=== PATIENT | male | born 1980 | race Caucasian/White ===

== ENCOUNTER 2016-11-17 13:30 | Inpatient (IN) | payer MEDICAID ==
[~2016-11-17 13:30] MED LIST: AVITENE POWDER 1 GM JAR TP ONE; BACITRACIN 50,000 UNITS/10 ML SYR IRR ONE; BACITRACIN ZINC 14.2 GM OINTTUBE TP ONE; LIDO/EPI 1% **for epidural** 30 ML SDV ONE; MANNITOL 20% 100 GM/500 ML BAG IV ONE; SURGIFLO MATRIX KIT WITH THROMBIN TP ONE; THROMBIN (BOVINE) 5,000 UNIT VIAL TP ONE; ceFAZolin 2 GM/DEXTROSE 100 ML IV ONE
[2016-11-17] MEDS ORDERED: LR 1,000 ML IV ONE (15:21)
[2016-11-17 15:42] LABS: % IMMATURE GRANULYOCYTES 0.6 % (0.0-1.1); ABSOLUTE IMMATURE GRANULOCYTES 0.06 10^3/uL (0.00-0.10); ADD DIFF? NO; ADD MORPH? NO; ADD SCAN? NO; ATYPICAL LYMPHOCYTE FLAG 10 (0-99); FRAGMENT RBC FLAG 0 (0-99); HEMATOCRIT 49.9 % (40.0-51.0); HEMOGLOBIN 17.8 g/dL (13.7-17.5); LEFT SHIFT FLG 0 (0-99); LIPEMIA HEMOLYSIS FLAG 90 (0-99); MEAN CELL HEMOGLOBIN 33.2 pg (27.9-34.1); MEAN CELL HEMOGLOBIN CONCENTR. 35.7 g/dL (32.4-36.7); MEAN CELL VOLUME 93.1 fL (81.5-99.8); MEAN PLATELET VOLUME 9.6 fL (8.7-11.7); PLATELET CLUMPS FLAG 10 (0-99); PLATELET COUNT 254 10^3/uL (150-400); RED BLOOD CELL COUNT 5.36 10^6/uL (4.40-6.38)
[2016-11-17] MEDS ORDERED: GENTAMICIN SULFATE 80 MG/2 ML VIAL ONE (15:55)
[2016-11-17] MEDS ORDERED: ceFAZolin 2 GM/DEXTROSE 100 ML IV ONE (16:00)
[2016-11-17] MEDS ORDERED: BACITRACIN 50,000 UNITS/10 ML SYR IRR ONE (16:03)
[2016-11-17] MEDS ORDERED: MIDAZOLAM 2 MG/2 ML VIAL IVP ONE (16:08)
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
--- NOTE | 2016-11-17 16:23 | PDHPUP ---
History & Physical Update H&P update statement: This history and physical update is based on an assessment of the patient which was completed after admission or registration (within 24 hours), but prior to the surgery/procedure. H&P update: H&P reviewed & patient examined, no change in patient's condition since H&P completed
[2016-11-17] MEDS ORDERED: PROPOFOL 200 MG/20 ML VIAL ONE (16:27)
[2016-11-17] MEDS ORDERED: POLYETHYLENE GLYCOL 3350 17 GM PKT PO PRN (16:40)
[2016-11-17] MEDS ORDERED: LACTULOSE 20 GM/30 ML UDCUP PO PRN (16:40)
[2016-11-17] MEDS ORDERED: MAGNESIUM HYDROXIDE 30 ML UDCUP PO PRN (16:40)
[2016-11-17] MEDS ORDERED: ACETAMINOPHEN 325 MG TAB PO PRN (16:40)
[2016-11-17] MEDS ORDERED: BISACODYL 10 MG SUPP PR PRN (16:40)
[2016-11-17] MEDS ORDERED: NS W/ 20 KCl/L 1,000 ML IV SCH (16:45)
[2016-11-17] MEDS ORDERED: VANCOMYCIN 1.5 GM in D5W 250 ML IV ONE (17:00)
[2016-11-17] MEDS ORDERED: ONDANSETRON 4 MG/2 ML VIAL IVP PRN (17:55)
[2016-11-17] MEDS ORDERED: PROMETHAZINE HCL 25 MG/ML INJ IVP PRN (17:55)
[2016-11-17] MEDS ORDERED: NALOXONE HCL 0.4 MG/ML INJ IVP PRN (17:55)
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
[2016-11-17] MEDS ORDERED: HYDROmorphONE/DILAUDID 1 MG/ML INJ ONE ×2 (18:17→19:03)
[2016-11-17] MEDS: HYDROmorphONE/DILAUDID 1 MG/ML INJ IVP PRN ×6 (18:18→19:26)
[2016-11-17] MEDS ORDERED: fentaNYL 100 MCG/2 ML INJ ONE ×2 (18:23→18:44)
[2016-11-17] MEDS: fentaNYL 100 MCG/2 ML INJ IVP PRN ×4 (18:26→18:58)
--- NOTE | 2016-11-17 18:31 | POSTANESTH ---
Post Anesthetic Evaluation Cardiovascular Status: Normal, Stable Respiratory Status: Normal, Stable Level of Consciousness/Mental Status: Mildly Sleepy, Arousable Pain Control: Adequate, Prn Tx Ordered Nausea/Vomiting Control: Adequate, Prn Tx Ordered Complications Possibly Related to Anesthesia: Other, See Comments (Pt reported "" capped front incisor that was loose preop. Front incisor noted to be bent forward after arrival to PACU. Pushed back into place.)
[2016-11-17] MEDS ORDERED: DESFLURANE 240 ML BOTTLE IH ONE (19:11)
[2016-11-17] MEDS: SENNOSIDES/DOCUSATE SODIUM TAB PO SCH (20:14)
[2016-11-17] MEDS: HYDROCODONE/APAP 10/325 TAB PO PRN (20:15)
--- NOTE | 2016-11-17 22:44 | POSTOPPROG ---
Post Op Note Date of Operation: 11/17/16 Surgeon: Efrem Santana Drafter Civil Engineering: Kiley Arnold Anesthesia: GET(General Endotracheal) Pre-op Diagnosis: Osteiomyelitis, cranial wound infections Post-op Diagnosis: same Procedure: Left craniectomy for wound washout Inf/Abcess present in the surg proc area at time of surgery?: Yes Depth: Organ Space Drains: Joseph Drake SOAP Progress Note Assessment/Plan: Assessment: Plan: 11/17/16 22:40 S;Patient in PACU. Stable. Complaining of head pain. 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 Santana Objective: Vital Signs Temp Pulse Resp BP Pulse Ox 36.9 C 61 14 152/88 H 92 11/17/16 22:36 11/17/16 22:36 11/17/16 22:36 11/17/16 22:36 11/17/16 22:36 Microbiology 11/17/16 17:30 Gram Stain - Final Other - Tissue 11/17/16 17:30 Gram Stain - Final Other - Tissue 11/17/16 17:30 Gram Stain - Final Other - Eswab 11/17/16 17:30 Mycobacterial Smear (ANGELA) - Final Other - Eswab Mycobacterial Culture - Final 11/17/16 17:00 Gram Stain - Final Other - Eswab 11/17/16 17:00 Mycobacterial Smear (ANGELA) - Final Other - Eswab Mycobacterial Culture - Final Laboratory Results 11/17/16 15:30 11/16/16 11/17/16 11/18/16 05:59 05:59 05:59 Intake Total 110 Output Total 30 Balance 80
[2016-11-17] MEDS: CEFEPIME HCL 1 GM in D5W 50 ML IV SCH (23:11)
[2016-11-17] MEDS: VANCOMYCIN 1.5 GM in D5W 250 ML IV SCH (23:48)
[2016-11-18] MEDS: HYDROCODONE/APAP 10/325 TAB PO PRN ×3 (02:19→17:09)
[2016-11-18] MEDS: SENNOSIDES/DOCUSATE SODIUM TAB PO SCH ×2 (08:55→20:23)
[2016-11-18] MEDS: HEPARIN 5,000 UNIT/0.5 ML SYR SC SCH ×2 (08:55→20:25)
[2016-11-18] MEDS: CEFEPIME HCL 1 GM in D5W 50 ML IV SCH ×2 (08:55→21:55)
[2016-11-18] MEDS: VANCOMYCIN 1.5 GM in D5W 250 ML IV SCH ×2 (10:24→22:06)
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
[2016-11-18] MEDS: BEER 1 EACH EA PO SCH ×2 (12:36→20:38)
[2016-11-18] MEDS: KETOROLAC 15 MG/1 ML SDV IVP PRN ×2 (12:38→20:13)
[2016-11-18] MEDS ORDERED: PNEUMOCOCCAL 0.5ML VACCINE VIAL IM ONE (15:52)
[2016-11-18] MEDS ORDERED: FLU VACC QS 2017-18 (3YR+)/PF 0.5 ML SYR (FLUARIX QUAD) IM ONE (15:52)
--- NOTE | 2016-11-18 16:04 | ASMTCMCOM ---
CM Note CM Note Notes: Pt had L craniectomy for wound washout. Pt lives at home w/Mom. D/w RN, anticipate home w/no CM needs but still awaiting PT rec. Cleared by speech. ROB w/f. Date Signed: 11/18/2016 04:03 PM Electronically Signed By:Kim Gordon RN
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
[2016-11-19] MEDS: HYDROCODONE/APAP 10/325 TAB PO PRN ×3 (05:33→20:53)
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
[2016-11-19] MEDS: CEFEPIME HCL 1 GM in D5W 50 ML IV SCH (09:44)
[2016-11-19] MEDS: HEPARIN 5,000 UNIT/0.5 ML SYR SC SCH ×2 (09:44→20:53)
[2016-11-19] MEDS: SENNOSIDES/DOCUSATE SODIUM TAB PO SCH ×2 (09:44→20:53)
[2016-11-19] MEDS: VANCOMYCIN 1.5 GM in D5W 250 ML IV SCH (12:48)
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
[2016-11-19] MEDS: BEER 1 EACH EA PO SCH ×2 (15:28→19:35)
[2016-11-19] MEDS: cefTRIAXone 2 GM in D5W 50 ML IV SCH (20:54)
[2016-11-19] MEDS: hydrALAZINE 20 MG/ML VIAL IVP PRN (23:43)
[2016-11-20] MEDS: HEPARIN 5,000 UNIT/0.5 ML SYR SC SCH ×2 (08:51→20:36)
[2016-11-20] MEDS: SENNOSIDES/DOCUSATE SODIUM TAB PO SCH ×2 (08:52→20:36)
[2016-11-20] MEDS: HYDROCODONE/APAP 10/325 TAB PO PRN ×2 (08:52→20:37)
[2016-11-20] MEDS: cefTRIAXone 2 GM in D5W 50 ML IV SCH ×2 (09:08→20:36)
[2016-11-20] MEDS: BEER 1 EACH EA PO SCH ×2 (10:36→18:46)
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
[2016-11-21] MEDS: cefTRIAXone 2 GM in D5W 50 ML IV SCH ×2 (08:16→21:07)
[2016-11-21] MEDS: KETOROLAC 15 MG/1 ML SDV IVP PRN (08:17)
[2016-11-21] MEDS: HEPARIN 5,000 UNIT/0.5 ML SYR SC SCH ×2 (08:25→21:07)
[2016-11-21] MEDS: SENNOSIDES/DOCUSATE SODIUM TAB PO SCH ×2 (08:25→21:07)
[2016-11-21] MEDS: HYDROCODONE/APAP 10/325 TAB PO PRN ×2 (11:30→21:07)
[2016-11-21] MEDS: BEER 1 EACH EA PO SCH (11:34)
[2016-11-21] MEDS ORDERED: ALTEPLASE 2 MG VIAL IVP PRN (16:04)
--- NOTE | 2016-11-21 16:07 | PDIAF ---
- Diagnosis Diagnosis: Skull flap osteomyelitis Code Status: Full Code - Medication Management Discharge Medications: Medications to Continue on Transfer NK [No Known Home Meds] 11/15/16 [Last Taken Unknown] Residential Antibiotics: Ceftriaxone 2 g IV q12; Flagyl 500 mg po bid Residential Antibiotic Stop Date: 12/30/16 Discharge Medications: Refer to the Discharge Home Medication list for PRN reason. PICC Care - Routine: Yes - Orders Services needed: Home Long-Term Care Face to Face: I certify that this patient was under my care and that I had the required [id number] encounter meeting the encounter requirements on the discharge day. My findings support the fact that the patient is homebound as defined in Home Care Face to Face Continued: CMS Chapter 7 Medicare Benefits Manual 30.1.1 , The condition of the patient is such that there exists a normal inability to leave home and consequently, leaving home would require a considerable and taxing effort. - Labs/Radiology CBC Date: 11/24/16 (weekly q ) CMP Date: 11/24/16 (weekly q ) Call or Fax Lab and Imaging Results to: Dr. Higgins [phone] - Follow Up Care Current Providers and Referrals: REESE POSEY [Other] Greg Higgins MD [Medical Doctor] - 11/30/16 1:30 pm
--- NOTE | 2016-11-21 16:19 | ASMTCMCOM ---
CM Note CM Note Notes: Pt will need IV antibiotics at d/c, ceftriaxone Q12 for 6 wks, referral sent to [facility]. Pt still needs picc. Pt lives w parents. No therapy need at d/c. Pt admitted to amphetamine use but no concern he has used IV drugs. Date Signed: 11/21/2016 04:18 PM Electronically Signed By:JULIETA Banuelos
[2016-11-21] MEDS ORDERED: BEER 1 EACH EA PO SCH (18:00)
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
[2016-11-22] MEDS: hydrALAZINE 20 MG/ML VIAL IVP PRN (00:23)
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
[2016-11-22 08:14] VITALS: RESP 18
[2016-11-22] MEDS: SENNOSIDES/DOCUSATE SODIUM TAB PO SCH (08:18)
[2016-11-22] MEDS: HEPARIN 5,000 UNIT/0.5 ML SYR SC SCH (08:19)
[2016-11-22] MEDS ORDERED: metroNIDAZOLE 500 MG TAB PO SCH (09:00)
[2016-11-22] MEDS: cefTRIAXone 2 GM in D5W 50 ML IV SCH (09:21)
--- NOTE | 2016-11-22 15:30 | ASMTCMCOM ---
CM Note CM Note Notes: Pt medically stable for d/c w [facility]. Picc report and orders sent to [facility]. Pt next dose is 2100. Date Signed: 11/22/2016 03:30 PM Electronically Signed By:JULIETA Banuelos
[2016-11-22 16:17] VITALS: BP 141/75; PULSE 76; TEMP 98.7; O2SAT 94
--- NOTE | 2016-11-22 16:48 | ASDISCHSUM ---
Discharge Information Plan Status:IV ABX/Infusion Medically Cleared to Leave: Discharge Date:11/22/2016 04:41 PM D/C Disposition:Home Health Service ADT D/C Disposition:[id number] Projected Discharge Date:11/22/2016 11:00 AM Transportation at D/C: Discharge Delay Reason: Follow-Up Date:11/22/2016 11:00 AM Discharge Slot: Final Diagnosis: Placement Information Referral Type:Home Infusion Referral ID:[id number] Provider Name:[facility] ([facility]) Address 1:[address] Address 2: City:[place] Selection Factors: State:[place] Patient Contact Information Contact Name:YESSICADOMINICK Relationship:Mother Address:[address] City:[place] Alternate Phone: State/Zip Code:[place] [address] Email: Financial Information Financial Class: Primary Plan Desc:[employer] [place] Primary Plan Number:[id number] Secondary Plan Desc: Secondary Plan Number: Assessment Information [facility] CM Progress Note CM Note CM Note Notes: Pt had L craniectomy for wound washout. Pt lives at home w/Mom. D/w [facility], anticipate home w/no CM needs but still awaiting PT rec. Cleared by speech. CM w/f. Date Signed: 11/18/2016 04:03 PM Electronically Signed By:Kim Gordon RN [facility] CM Progress Note CM Note CM Note Notes: Pt will need IV antibiotics at d/c, ceftriaxone Q12 for 6 wks, referral sent to [facility]. Pt still needs picc. Pt lives w parents. No therapy need at d/c. Pt admitted to amphetamine use but no concern he has used IV drugs. Date Signed: 11/21/2016 04:18 PM Electronically Signed By:JULIETA Banuelos [facility] CM Progress Note CM Note CM Note Notes: Pt medically stable for d/c w [facility]. Picc report and orders sent to [facility]. Pt next dose is 2100. Date Signed: 11/22/2016 03:30 PM Electronically Signed By:JULIETA Banuelos Intervention Information
== END 2016-11-22 16:41 | disposition home health service (06) | DRG 857 ==
LOC: F3N 14:54 → F2N 15:15 → F3N 11-18 18:18
PROVIDERS: ADMIT Neurological Surgery; ATTEND Neurological Surgery
PROC: 0NB00ZZ Excision of Skull, Open Approach (ICD-10-PCS; principal; 2016-11-17 16:00)
PROC: 02HV33Z Insertion of Infusion Device into Superior Vena Cava, Percutaneous Approach (ICD-10-PCS; 2016-11-22)
DX: T81.4XXA Infection following a procedure, initial encounter (principal); M86.18 Other acute osteomyelitis, other site; Z23 Encounter for immunization
CPT/HCPCS: 92523-GN; C1751; G0008; G0009; J0360; J0690; J0692; J0696; J1170; J1885; J2250; J2704; J3010; J3370